=== PATIENT | male | born 1950 | race Caucasian/White ===

== ENCOUNTER → 2016-10-13 | Outpatient (CLI) | payer BC ==
[~2016-10-13] MED LIST: CIALIS PO; LOTREL PO
--- NOTE | ~2016-10-13 | CT55 ---
[facility] A Service of [facility] RADIOLOGY TEXT RESULTS PATIENT: YUMIKO SMITH LOCATION: [facility] : 54 UNIT #: [id number] AGE: [address]: HAYLEE HOYT SEX: M ORDER DR: [id number] [facility] [address] [place], [place] [address] [id number] O MR#: [id number] Acc #: [id number] NAME: YUMIKO SMITH : 1950 SEX: M STUDY DATE/TIME: 10/13/2016 10:14 UNIT: [facility] ROOM: STUDY DESCRIPTION: CT Chest W Con Attending Physician: Haylee Hoyt Aprn Referring Physician: Haylee Hoyt Aprn Ordering Physician: Haylee Hoyt Aprn Primary Care Physician: Israel López M.D. MEDICAL IMAGING REPORT This report is preliminary unless electronic signature is present EXAM CT chest with contrast10/13/2016 INDICATIONS Chronic cough for the past 2-3 months. Pulmonary nodule. PROCEDURE Contrast-enhanced CT of the chest. 70 mL of Isovue-370. This CT exam was performed with one or more of the following radiation dose reduction techniques: automatic exposure control, adjustment of mA and/or kV according to patient size, and iterative reconstruction. COMPARISON STUDIES None FINDINGS There is a small area of interstitial thickening and clustered micro nodularity in the right middle lobe. There is diffuse bronchial wall thickening. There are areas of mucous plugging in the right lower lobe. Scattered areas of linear scarring or atelectasis, particularly the lower lobes. No dense consolidation. No adenopathy. No aggressive appearing bone lesion. IMPRESSION 1. Area of clustered micronodularity in the right middle lobe most in keeping with infectious or inflammatory small airways disease. 2. Diffuse bronchial wall thickening with areas of mucous plugging in the right lower lobe, most in keeping with bronchitis. 3. No dense consolidation. Dictated by... Edilberto Pope M.D. [facility] A Service [facility] RADIOLOGY TEXT RESULTS PATIENT: YUMIKO SMITH LOCATION: [facility] : 54 UNIT #: [id number] AGE: [address]: HAYLEE HOYT SEX: M ORDER DR: THIS IS AN ELECTRONICALLY VERIFIED REPORT Edilberto Pope M.D. at 10/16/2016 7:45 AM Ramon TD: 10/13/2016 16:29 JOB #: [id number] MEDICAL IMAGING REPORT Page 1 of 1 COPY
[2016-10-13 10:10] LABS: POC - CREATININE 1.11 mg/dL (0.64-1.27); POC - GFR >60.0 mL/min (>60)
== END | disposition home or self-care (01) ==
LOC: CCAT 09:40
PROVIDERS: Nurse Practitioner
DX: R91.1 Solitary pulmonary nodule (principal); R05 Cough; T17.590A Other foreign object in bronchus causing asphyxiation, initial encounter; R91.8 Other nonspecific abnormal finding of lung field
CPT/HCPCS: 71260; 82565; Q9967